=== PATIENT | female | born 1990 | race Caucasian/White ===

== ENCOUNTER 2022-05-04 00:58 | Emergency (ER) | payer OTHER, SELFPAY ==
[2022-05-04] VITALS (8 sets, daily range): BP systolic 111–141; BP diastolic 64–89; PULSE 70–86; RESP 14–18; TEMP 36.2; O2SAT 100
--- NOTE | ~2022-05-04 | XR_ITS ---
EXAMINATION: XR chest 2V DATE: 05/04/2022 02:26 INDICATION: Shortness of breath TECHNIQUE: PA and lateral views of the chest were obtained. COMPARISON: None FINDINGS: The lungs are clear with no focal airspace opacities, pulmonary edema, pleural effusion or pneumothor ax. The cardiomediastinal silhouette is normal. Mild thoracic spondylosis. IMPRESSION: 1. No acute cardiopulmonary disease. Reviewed, dictated and finalized at location A.
--- NOTE | 2022-05-04 01:10 | ECG_ITS ---
Measurements Intervals [place] Rate: 69 P: 33 ME: 125 QRS: 34 QRSD: 87 T: 29 QT: 398 QTc: 427 Interpretive Statements SINUS RHYTHM WITH SINUS ARRHYTHMIA NORMAL ECG NO PREVIOUS ECG AVAILABLE FOR COMPARISON Electronically Signed On 05-04-2022 15:41:28 CDT by Kennedy Davis M.D.
--- NOTE | 2022-05-04 01:13 | ED.SOB ---
HPI - SOB/Dyspnea General Chief Complaint: Shortness of Breath/Dyspnea Stated Complaint: chest tightness Time Seen by Provider: 05/04/22 01:06 History of Present Illness HPI Narrative: 31-year-old female presents to the emergency room for evaluation of chest pain and shortness of breath that has been present for several days. Patient has a history of asthma and states that she is having difficulty taking a deep breath. Patient was seen in another emergency room yesterday and had a complete cardiac work-up. patient states that it was normal work-up, and was diagnosed with acid reflux. Patient states she was given a breathing treatment with no resolution of symptoms. Patient states she is experiencing chest tightness when she takes a deep breath. Patient denies fevers or recent coughs. Patient denies radiating pain. Denies syncopal episodes. Denies nausea or vomiting. Patient states that she has been taking her albuterol inhaler excessively recently. Related Data Allergies Allergy/AdvReac Type Severity Reaction Status Date / Time No Known Allergies Allergy Verified 05/04/22 01:41 Review of Systems Review of Systems: CONSTITUTIONAL: Denies fever, chills, or sweats. EYES: Denies visual changes, redness, or discharge. ENT: Denies rhinorrhea, congestion, sore throat, or otalgia. CARDIOVASCULAR: Reports chest pain RESPIRATORY: Reports dyspnea. GASTROINTESTINAL: Denies abdominal pain, nausea, vomiting, or diarrhea. GENITOURINARY: Denies dysuria or hematuria. SKIN: Denies rash or itching. MUSCULOSKELETAL: Denies back pain, joint pain, or myalgia. NEUROLOGIC: Denies headache, numbness, dizziness, or weakness. PSYCHIATRIC: Denies anxiety or depression. Exam Narrative: GENERAL: Well-appearing, well-nourished, no physical limitations. HEAD: Normocephalic, atraumatic. EYES: Conjunctivae normal, PERRLA and EOMI. CHEST: Clear to auscultation. Tachypnea. No wheezes rales or rhonchi. HEART: Regular rate and rhythm. No murmur heard. Normal peripheral pulses. ABDOMEN: Soft, nontender, nondistended, normal active bowel sounds. EXTREMITIES: Normal range of motion. No edema. No clubbing or cyanosis SKIN: Warm, dry, no rash. No noted wounds NEURO: No focal deficits. Alert and oriented x3. MAEW. CN's II-XI intact bilaterally, normal gait PSYCH: Cooperative. Anxious and tearful. Course Vital Signs Vital signs: Vital Signs Temperature 36.2 C L 05/04/22 01:02 Pulse Rate 76 05/04/22 01:02 Respiratory Rate 15 05/04/22 01:02 Blood Pressure 141/89 H 05/04/22 01:02 Pulse Oximetry 100 05/04/22 01:02 Oxygen Delivery Room Air 05/04/22 01:02 Temperature 36.2 C L 05/04/22 01:02 Pulse Rate 74 05/04/22 01:51 Respiratory Rate 18 05/04/22 01:51 Blood Pressure 141/89 H 05/04/22 01:02 Pulse Oximetry 100 05/04/22 02:00 Oxygen Delivery Room Air 05/04/22 02:00 MDM - SOB/Dyspnea MDM Narrative Medical decision making narrative: 31-year-old female presented the emergency room with ongoing inspiratory chest discomfort. Patient was seen in outside emergency room yesterday and reports that her cardiac work-up was normal. Patient presents with ongoing inspiratory chest pain. Patient does have a history of asthma. Lab work was unremarkable. ABG shows a chronic respiratory alkalosis likely due to anxiety or hyperventilation. D-dimer was negative. Well score is 0. Troponin was negative. EKG shows no evidence of ischemia. Lab Data Result diagrams: 05/04/22 01:19 05/04/22 01:19 Labs: Lab Results 05/04/22 05/04/22 05/04/22 Range/Units 01:19 01:19 01:19 WBC 6.3 (4.5-10.0) K/mm3 RBC 4.33 (4.2-5.4) M/mm3 Hgb 12.8 (12.0-15.0) g/dL Hct 39.2 (37.0-47.0) % MCV 90.5 (80-100) fl MCH 29.6 (26-34) pg MCHC 32.7 (32-36) g/dl RDW 12.3 (11.5-14.5) % Plt Count 228 (150-375) k/mm3 MPV 10.7 H (7.4-10.4) fl Immature Gran % (Auto) 0.3 (0-0.5)
[2022-05-04 01:25] LABS: Basophils Absolute Auto 0.1 K/mm3 (0.0-0.1); Eosinophils Absolute Auto 0.4 K/mm3 (0-0.3); Eosinophils Percent Auto 6.8 % (0-4.4); Hematocrit 39.2 % (37.0-47.0); Hemoglobin 12.8 g/dL (12.0-15.0); Immature Granulocyte Absolute 0.02 K/mm3 (0.00-0.031); Immature Granulocyte Percent A 0.3 % (0-0.5); Lymphocytes Absolute Auto 2.74 K/mm3 (0.9-3.2); Lymphocytes Percent Auto 43.4 % (18.3-44.2); Mean Corpuscular HGB Conc 32.7 g/dl (32-36); Mean Corpuscular Hemoglobin 29.6 pg (26-34); Mean Corpuscular Volume 90.5 fl (80-100); Mean Platelet Volume 10.7 fl (7.4-10.4); Monocytes Absolute Auto 0.6 K/mm3 (0.1-0.6); Monocytes Percent Auto 8.9 % (2.6-8.5); Neutrophils Absolute Auto 2.5 K/mm3 (1.3-6.7); Neutrophils Percent Auto 39.6 % (45.5-73.1); Platelet Count Result 228 k/mm3 (150-375); Red Blood Count 4.33 M/mm3 (4.2-5.4); Red Cell Distribution Width 12.3 % (11.5-14.5); White Blood Count 6.3 K/mm3 (4.5-10.0)
[2022-05-04] MEDS: IPRATROPIUM BR 0.02% INH SOLN 0.5 MG/2.5 ML VIAL INHALATION (01:29)
[2022-05-04] MEDS: ALBUTEROL SULFATE NEB 2.5 MG/3 ML INH 5 MG INHALATION (01:29)
[2022-05-04 01:34] LABS: Alanine Aminotransferase 24 U/L (6-35); Albumin Level 4.6 g/dL (3.5-5.1); Alkaline Phosphatase 42 U/L (38-126); Anion Gap 10 mmol/L (8-16); Aspartate Amino Transferase 28 U/L (14-36); Bilirubin,Total 0.3 mg/dL (0.2-1.3); Blood Urea Nitrogen 9 mg/dL (7-17); Calcium 9.1 mg/dL (8.4-10.2); Carbon Dioxide 27 mmol/L (22-30); Chloride 103 mmol/L (98-107); Estimated CRCL calculation 101 ml/min; Estimated Glomerular Filt Rate > 60; Glucose 100 mg/dL (65-110); Lipase 135 U/L (23-300); Potassium 3.7 mmol/L (3.4-5.0); Sodium 140 mmol/L (137-145)
[2022-05-04] MEDS: methylPREDNISolone SOD SUCC 125 MG VIAL IV PUSH (01:41)
[2022-05-04 01:43] LABS: Base Excess ABG -1.7 mEq/l (+/-2.0); Fractional Inspired Oxygen 21 %; HCO3 ABG 21.2 mEq/l (22.0-26.0); Oxygen Content ABG 18.5 %vol (16.0-22.0); Oxygen Saturation ABG 99.7 % (95.0-100.0); Oxyhemoglobin 98.6 % THb (90.0-100.0); PCO2 ABG 30.6 mmHg (35.0-45.0); PO2 ABG 289.9 mmHg (80.0-100.0); Total Hemoglobin 12.8 g/dL (12.0-18.0); pH ABG 7.458 (7.350-7.450)
[2022-05-04 01:45] LABS: Troponin I < 0.012 ng/mL (0.000-0.034)
[2022-05-04 01:46] LABS: Device ROOM AIR; Modified Allen's Test Pass; Site Drawn RIGHT RADIAL
[2022-05-04 01:50] LABS: D Dimer 0.27 ug/mL (<0.48)
--- NOTE | 2022-05-04 01:52 | PCRCNOTE ---
ABG completed per order. ABG machine didn't cigar packer and picker calculate a couple of results. Doctor is aware.
[2022-05-04 02:26] LABS: Influenza A QL RT-PCR Negative (Negative); Influenza B QL RT-PCR Negative (Negative); SARS-CoV-2 RNA PCR Negative
== END 2022-05-04 02:38 | disposition home or self-care (01) ==
PROVIDERS: Emergency Provider Nurse Practitioner Family
DX: J45.901 Unspecified asthma with (acute) exacerbation (principal); R09.1 Pleurisy; Z20.822 Contact with and (suspected) exposure to COVID-19
CPT/HCPCS: 36415; 36600; 71046; 80053; 82805; 83690; 84484; 85025; 85380; 87502; 93005; 94640; 96374; 99284; C9803; J2930; U0003; U0005

== ENCOUNTER 2023-03-15 09:14 | Emergency (ER) | payer OTHER, SELFPAY ==
--- NOTE | 2023-03-15 09:18 | ED.GENADULT ---
HPI - General Adult General Chief complaint: Upper Respiratory Infection Stated complaint: Sore Throat,Cough,Headache Time Seen by Provider: 03/15/23 09:18 Source: patient Mode of arrival: ambulatory Limitations: no limitations History of Present Illness HPI narrative: 32-year-old female patient presents to the [facility] with complaints sore throat symptoms x2 days. Patient states she did have some chills yesterday denies any known fevers. Patient states she has had a lot of drainage coming from her sinuses but denies any on a nausea, vomiting or diarrhea. patient states she has had a headache for the last 2 days as well. Patient states she has had strep before in the past would come and get checked out today. Related Data Home Medications Medication Instructions Recorded Confirmed [id number] 1 cap PO PRN PRN Headache 03/15/23 03/15/23 mg-325 mg-40 mg capsule cholecalciferol (vitamin D3) 1,250 1,250 mcg PO WEEKLY 03/15/23 03/15/23 mcg (50,000 unit) capsule escitalopram oxalate 10 mg tablet 10 mg PO DAILY 03/15/23 03/15/23 fluticasone furoate 100 2 inh inhalation DAILY 03/15/23 03/15/23 mcg-vilanterol 25 mcg/dose inhalation powder (Breo Ellipta) liothyronine 25 mcg tablet 25 mcg PO DAILY 03/15/23 03/15/23 lorazepam 0.5 mg tablet 0.5 mg PO PRN PRN Anxiety 03/15/23 03/15/23 metformin 500 mg tablet,extended 500 mg PO DAILY 03/15/23 03/15/23 release 24 hr semaglutide 14 mg tablet (Rybelsus) 14 mg PO DAILY 03/15/23 03/15/23 spironolactone 25 mg tablet 25 mg PO DAILY 03/15/23 03/15/23 Allergies Allergy/AdvReac Type Severity Reaction Status Date / Time No Known Allergies Allergy Verified 03/15/23 09:15 Review of Systems Review of Systems: CONSTITUTIONAL: Denies fever, Positive chills, denies sweats. EYES: Denies visual changes, redness, or discharge. ENT: Denies rhinorrhea, positive congestion, positive sore throat, denies otalgia. CARDIOVASCULAR: Denies chest pain, palpitations, or edema. RESPIRATORY: Denies cough or dyspnea. GASTROINTESTINAL: Denies abdominal pain, nausea, vomiting, or diarrhea. GENITOURINARY: Denies dysuria or hematuria. SKIN: Denies rash or itching. MUSCULOSKELETAL: Denies back pain, joint pain, or myalgia. NEUROLOGIC: positive headache, denies numbness, or weakness. PSYCHIATRIC: Denies anxiety or depression. PMFSH Comments At the time of my signature I agree with nursing past medical history, surgical, social, and family history. There is no relevant family history pertinent to the presenting complaint. Exam Narrative: GENERAL: Well-appearing, well-nourished, and in no acute distress. HEAD: Normocephalic, atraumatic. EYES: PERRLA and EOMI. ENT: Nares with erythema edema noted bilaterally, no rhinorrhea or epistaxis. Mucous membranes moist. posterior pharynx with erythema and it does appear to have some white exudates noted bilateral tonsils on exam. Bilateral TMs are clear no erythema foreign bodies the canal. NECK: Supple. No lymphadenopathy CHEST: Clear to auscultation. No respiratory distress. HEART: Regular rate and rhythm. No murmur heard. Normal peripheral pulses. ABDOMEN: Soft, nontender, nondistended, normal active bowel sounds. EXTREMITIES: Normal range of motion. No edema. SKIN: Warm, dry, no rash. NEURO: No focal deficits. Alert and oriented x3. Course Course Level of Care: Express Care Visit Vital Signs Vital signs: Vital Signs Temperature 36.6 C 03/15/23 09:23 Pulse Rate 86 03/15/23 09:23 Respiratory Rate 18 03/15/23 09:23 Blood Pressure 120/80 03/15/23 09:23 Pulse Oximetry 99 03/15/23 09:23 Oxygen Delivery Room Air 03/15/23 09:23 Temperature 36.6 C 03/15/23 09:23 Pulse Rate 86 03/15/23 09:23 Respiratory Rate 18 03/15/23 09:23 Blood Pressure 120/80 03/15/23 09:23 Pulse Oximetry 99 03/15/23 09:23 Oxygen Delivery Room Air 03/15/23 09:23 vital signs reviewed. Medical D
[2023-03-15 09:23] VITALS: BP 120/80; PULSE 86; RESP 18; TEMP 36.6; O2SAT 99
== END 2023-03-15 10:15 | disposition home or self-care (01) ==
PROVIDERS: Emergency Provider Nurse Practitioner Family
DX: J06.9 Acute upper respiratory infection, unspecified (principal); J02.9 Acute pharyngitis, unspecified; Z20.822 Contact with and (suspected) exposure to COVID-19; J45.909 Unspecified asthma, uncomplicated; E03.9 Hypothyroidism, unspecified; F41.9 Anxiety disorder, unspecified; F32.A Depression, unspecified; E28.2 Polycystic ovarian syndrome; Z86.16 Personal history of COVID-19
CPT/HCPCS: 87081; 87426; 87880; 99213; C9803; G0463